=== PATIENT | male | born 1955 | race Caucasian/White ===

== ENCOUNTER 2017-03-17 20:40 | Emergency (ER) | payer BC ==
[2017-03-17 21:01] VITALS: RESP 22; TEMP 96.9
[2017-03-17] MEDS ORDERED: ONDANSETRON 4 MG/2 ML VIAL ONE (21:03)
[2017-03-17] MEDS ORDERED: MORPHINE SULFATE 4 MG/1 ML IVP ONE (21:12)
[2017-03-17] MEDS ORDERED: Sodium Chloride 0.9% 1,000 ML PRIMARY IV ONE (21:12)
[2017-03-17] MEDS ORDERED: ONDANSETRON 4 MG/2 ML VIAL IVP ONE (21:12)
--- NOTE | 2017-03-17 21:16 | PDOC ---
Abdomen/Flank HPI - General Chief Complaint: Abdomen Pain Stated Complaint: LEFT LOWER ABDOMEN PAIN Date Seen by Provider: 03/17/17 Time Seen by Provider: 21:11 Source: POSITIVE: Patient, Spouse Exam Limitations: POSITIVE: No limitations Nurse's Notes Reviewed & Considered: Yes - History of Present Illness Initial Comments: This very pleasant 61-year-old male comes in complaining of severe left lower abdominal pain. Patient was in his normal state of health at approximately 7: 30 PM tonight developed excruciating left lower quadrant pain with associated nausea, diaphoresis, pain radiated towards his umbilicus. He denies any headache, no chest pain, no shortness of breath, he does have sweats, as well as left lower quadrant abdominal pain. He has recently been taken off of all of his medications which included metformin. Body Location Affected: REPORTS: Abdomen Timing: REPORTS: Abrupt Duration: 1-3 hours Severity: Severe Quality: REPORTS: Cramping, "Pain", Sharpness, Throbbing Abdominal Pain Onset Location: REPORTS: LLQ Abdominal Pain Radiation: REPORTS: Periumbilical Context: REPORTS: Rest Modifying Factors: improves with: Nothing Associated Symptoms: REPORTS: Chills, Diaphoresis, Nausea, Vomiting Similar Symptoms Previously: No Recent Care Received: REPORTS: Denies Any Prior Injuries Related to Current Complaint?: No - Patient Home Medications Home Medications: Home Medications Aspirin 81 mg PO DAILY 03/17/17 - Patient Allergies Allergies/Adverse Reactions: Allergies Allergy/AdvReac Type Severity Reaction Status Date / Time Penicillins Allergy SWELLING Verified 03/17/17 20:45 Past Medical History - heen HEENT History: Denies History Cardiovascular History: Hypertension Respiratory History: Denies History Gastrointestinal History: Denies History Genitourinary History: Denies History Endocrine History: Denies History Musculoskeletal History: Denies History Neurological History: Denies History Blood Disorders: Denies History Psychiatric History: Denies History Cancer History: Denies History In Past Year Been Physically Harmed or Verbally Threatened: No History of MDRO: No Tobacco Use: Never Smoker Alcohol Use: Occasionally Substance Use Type: None Previous Surgical History: Yes Type / Date of Surgery: leg surgery Significant Family History: No pertinent family hx ROS - Limitations ROS Limitations: No Limitations Constitution: REPORTS: Chills, Diaphoresis Cardiovascular: REPORTS: Denies Cardiac Symptoms Respiratory: REPORTS: Denies Resp Symptoms Neurological: REPORTS: Denies Neuro Symptoms Gastrointestinal: REPORTS: Abdominal Pain, Nausea, Vomitting Endocrine: REPORTS: Denies Symptoms Musculoskeletal: REPORTS: Denies MS Symptoms Genitourinary: REPORTS: Denies Symptoms Eyes: REPORTS: Denies Symptoms ENT: REPORTS: Denies Symptoms Skin: REPORTS: Denies Skin Symptoms Lympathic: REPORTS: Denies Lympathic Symptoms Immunologic: POSITIVE: Denies Symptoms Psychiatric: POSITIVE: Denies Psych Symptoms Abdominal/Flank Pain PE - General Appearance General Appearance: POSITIVE: Alert, Cooperative, No Evidence of Trauma, Severe Distress - HEENT HEENT: POSITIVE: Head Inspection Nml, Eyes Inspection Nml, Ears Inspection Nml, Nose Inspection Nml, PERRL, EOMI - Neck Neck: POSITIVE: Normal Inspection, No Apparent Injury - Respiratory Respiratory: POSITIVE: No Respiratory Distress, Breath Sounds Normal, Chest Non- Tender - Cardiovascular Cardiovascular: POSITIVE: Regular Rate and Rhythm, Heart Sounds Normal - Chest Chest: POSITIVE: Non Tender - Abdomen Abdomen: Normal Bowel Sounds: (All Quadrants), Tenderness Noted: (LLQ), Distention: (All Quadrants), Guarding: (LLQ), Rebound: (LLQ) - Back Back: POSITIVE: CVA Tenderness (L) - Skin Skin: POSITIVE: Intact, Normal For Race, No Rash, Diaphoresis (And cool to touch ) - Extremities Extremity: Non-Tender: (All Extremities), Normal ROM: (All Extremities), Normal Inspection: (All Extremities), Pelvis Stable: (All Extremities) - Neurological Neurological: POSITIVE: Affect Apporpriate, Oriented X3, Motor Normal, Sensation Normal - Psychological Psychiatric: POSITIVE: Affect Appropriate, Mood Appropriate Abdomen Progress - Results Reviewed by me Xrays/CTs/US Reviewed by me: Yes Discussed with Radiologist: Yes Lab Results Reviewed: Yes Lab Results:: Laboratory Results 03/17/17 03/17/17 03/17/17 Range/Units 20:55 21:36 21:59 WBC 9.38 (4.8-10.8) 10^3/uL RBC 5.08 (4.70-6.10) 10^6/uL Hgb 15.1 (14.0-18.0) g/dL Hct 44.6 (42.0-52.0) % MCV 87.8 (80-90) FL MCH 29.7 (27-31) PG MCHC 33.9 (33-37) g/dL RDW Std Deviation 45.1 (39-50) fL RDW Coeff of Ena 14.2 (11.5-14.5) % Plt Count 393 H (140-350) 10*3/uL MPV 8.9 (7.4-12.2) FL Immature Gran % (Auto) 0.7 (0-5) % Neut % (Auto) 48.5 L (50-80) % Lymph % (Auto) 39.7 (10-50) % [place] % (Auto) 7.8 (5-15) % Eos % (Auto) 1.9 (0-8) % Baso % (Auto) 1.4 H (0-1) % Immature Gran # (Auto) 0.07 10*3/UL Neut # (Auto) 4.55 10*3/UL Lymph # (Auto) 3.72 10*3/uL [place] # (Auto) 0.73 (0.3-0.8) 10*3/UL Eos # (Auto) 0.18 10*3/UL Baso # (Auto) 0.13 10*3/UL WBC Morphology Comment Normal morphology (NORM) Plt Morphology Comment Normal morphology (NORM) RBC Morph Comment Normal morphology (NORM) VBG pH 7.36 (7.32-7.42) VBG pCO2 40 L (45-55) mmHg VBG HCO3 22 (22-26) mmol/L VBG Base Excess -3 L (-2-2) MMOL/L Sodium 142 (135-145) meq/L Potassium 3.9 (3.8-5.2) meq/L Chloride 102 (98-112) meq/L Carbon Dioxide 26 (23-33) meq/L Anion Gap 14 (5-20) BUN 22 (7-22) mg/dL Creatinine 1.0 (0.70-1.50) mg/dL Estimated GFR > 60 (>60 ml/min/1.73m(2)) BUN/Creatinine Ratio 22.00 H (6-20) Glucose 313 H (78-110) mg/dL Mean Blood Glucose 197.716 mg/dL Hemoglobin A1c 8.52 H (4.2-6.0) % Calculated Osmolality 308.0 H (267-292) mOsm/kg Lactic Acid 1.3 (0.70-2.10) MMOL/L Calcium 9.6 (8.7-10.7) mg/dL Magnesium 2.0 (1.6-2.4) mg/dL Total Bilirubin 0.7 (0.3-1.2) mg/dL AST 20 L (21-57) IU/L ALT 41 (21-72) IU/L Alkaline Phosphatase 79 (38-126) IU/L Troponin I < 0.012 (< 0.040) ng/mL C-Reactive Protein 1.2 H (0.0-0.9) mg/dL Total Protein 7.5 (6.1-8.0) g/dL Albumin 4.4 (3.5-4.8) g/dL Globulin 3.0 (2.50-4.10) g/dL Albumin/Globulin Ratio 1.40 (1.3-2.0) mg/g Ur Collection Type Urine Color Urine Clarity (CLEAR) Urine pH (5.0-8.5) Ur Specific [place] (1.005-1.030) Urine Protein (NEG) mg/dl Urine Glucose (UA) (NEG) mg/dL Urine Ketones (NEG) Urine Occult Blood (NEG) Urine Nitrate (NEG) Urine Bilirubin (NEG) Urine Urobilinogen (0.2) EU/dL Ur Leukocyte Esterase (NEG) Urine RBC (NONE) /hpf Urine WBC (NONE) Ur Squamous Epith Cells (NONE) Ur Renal Epithelial Cell (NONE) Urine Crystals Urine Bacteria (NONE) Urine Casts (NONE) Urine Mucus (NONE) Urine Trichomonas (NONE) Urine Yeast (NONE) Ur Culture Indicated? 03/17/17 Range/Units 22:37 WBC (4.8-10.8) 10^3/uL RBC (4.70-6.10) 10^6/uL Hgb (14.0-18.0) g/dL Hct (42.0-52.0) % MCV (80-90) FL MCH (27-31) PG MCHC (33-37) g/dL RDW Std Deviation (39-50) fL RDW Coeff of Ena (11.5-14.5) % Plt Count (140-350) 10*3/uL MPV (7.4-12.2) FL Immature Gran % (Auto) (0-5) % Neut % (Auto) (50-80) % Lymph % (Auto) (10-50) % [place] % (Auto) (5-15) % Eos % (Auto) (0-8) % Baso % (Auto) (0-1) % Immature Gran # (Auto) 10*3/UL Neut # (Auto) 10*3/UL Lymph # (Auto) 10*3/uL [place] # (Auto) (0.3-0.8) 10*3/UL Eos # (Auto) 10*3/UL Baso # (Auto) 10*3/UL WBC Morphology Comment (NORM) Plt Morphology Comment (NORM) RBC Morph Comment (NORM) VBG pH (7.32-7.42) VBG pCO2 (45-55) mmHg VBG HCO3 (22-26) mmol/L VBG Base Excess (-2-2) MMOL/L Sodium (135-145) meq/L Potassium (3.8-5.2) meq/L Chloride (98-112) meq/L Carbon Dioxide (23-33) meq/L Anion Gap (5-20) BUN (7-22) mg/dL Creatinine (0.70-1.50) mg/dL Estimated GFR (>60 ml/min/1.73m(2)) BUN/Creatinine Ratio (6-20) Glucose (78-110) mg/dL Mean Blood Glucose mg/dL Hemoglobin A1c (4.2-6.0) % Calculated Osmolality (267-292) mOsm/kg Lactic Acid (0.70-2.10) MMOL/L Calcium (8.7-10.7) mg/dL Magnesium (1.6-2.4) mg/dL Total Bilirubin (0.3-1.2) mg/dL AST (21-57) IU/L ALT (21-72) IU/L Alkaline Phosphatase (38-126) IU/L Troponin I (< 0.040) ng/mL C-Reactive Protein (0.0-0.9) mg/dL Total Protein (6.1-8.0) g/dL Albumin (3.5-4.8) g/dL Globulin (2.50-4.10) g/dL Albumin/Globulin Ratio (1.3-2.0) mg/g Ur Collection Type Clean catch urine Urine Color Yellow Urine Clarity Slightly cloudy (CLEAR) Urine pH 6.0 (5.0-8.5) Ur Specific [place] 1.015 (1.005-1.030) Urine Protein 30 (NEG) mg/dl Urine Glucose (UA) 250 (NEG) mg/dL Urine Ketones 15 (NEG) Urine Occult Blood Large H (NEG) Urine Nitrate Negative (NEG) Urine Bilirubin Negative (NEG) Urine Urobilinogen 1.0 (0.2) EU/dL Ur Leukocyte Esterase Negative (NEG) Urine RBC >100 (NONE) /hpf Urine WBC 0-1 (NONE) Ur Squamous Epith Cells None (NONE) Ur Renal Epithelial Cell None (NONE) Urine Crystals None Urine Bacteria Few (NONE) Urine Casts None (NONE) Urine Mucus None (NONE) Urine Trichomonas None (NONE) Urine Yeast None (NONE) Ur Culture Indicated? Culture not set EKG Interpretation:: POSITIVE: Normal Sinus Rhythm - Patient's Progress Pain Medication Addressed: POSITIVE: Yes Re-examine Time: 23:17 Status: POSITIVE: Improved MDM / ED Course: The patient was evaluated, an IV started, blood drawn and sent to the lab for studies urinalysis obtained, radiographic studies obtained. Patient received IV morphine, normal saline, and Zofran. Subsequent medications included Toradol and Flomax. Findings: CT scan shows 7 mm stone in the distal left ureter with mild hydronephrosis and hydroureter present. Urinalysis shows blood present. CBC shows normal white count. EKG was obtained interpreted by me showing normal sinus rhythm. Troponin is negative. Magnesium is normal. Lactic acid is normal. Hemoglobin A1c is greater than 8. Assessment: Renal calculi with mild hydronephrosis and hydroureter. Plan: Discharge home, [place] for pain, Flomax, follow-up with primary care, strain urine to capture stone when it passes, increase hydration. Return to the emergency room if there is fevers, increased pain, or other concerns. - Consult Counseled: POSITIVE: Patient, Family, RE: Lab Results, RE: Radiology Results, RE : DX, RE: Need for F/U - CP/AMI Quality Measure Initiative: CP/AMI: POSITIVE: EKG Patient Care Time - Estimated PCT Patient Care Time (In Minutes): 30 Vital Signs - Recent Vital Signs Vital Signs: Vital Signs (Last 8 hours) Temp Pulse Resp BP Pulse Ox 03/17/17 20:40 96.9 F 80 22 188/113 97 - VS Reviewed Vital Signs Reviewed: Yes Discharge Clinical Impression: Nephrolithiasis Discharge Disposition: Discharged to Home Condition: Stable Patient Instructions Given at Discharge: Kidney Stones (ED)
--- NOTE | 2017-03-17 21:16 | EKG ---
[address] [address] Measurements Intervals [place] Rate: 86 P: 51 NC: 198 QRS: 25 QRSD: 102 T: 52 QT: 375 QTc: 418 Interpretive Statements SINUS RHYTHM INTERPRETATION BASED ON A DEFAULT AGE OF 40 YEARS No previous ECG available for comparison Electronically Signed On 03-18-17 08:08:38 MDT by Evin Davey MD [email or web address]
[2017-03-17 21:20] LABS: BASOPHILS # (AUTO) 0.13 10*3/UL; BASOPHILS % (AUTO) 1.4 % (0-1); EOSINOPHILS # (AUTO) 0.18 10*3/UL; EOSINOPHILS % (AUTO) 1.9 % (0-8); HEMATOCRIT 44.6 % (42.0-52.0); HEMOGLOBIN 15.1 g/dL (14.0-18.0); LYMPHOCYTES # (AUTO) 3.72 10*3/uL; MEAN CORPUSCULAR HEMOGLOBIN 29.7 PG (27-31); MEAN CORPUSCULAR HGB CONC 33.9 g/dL (33-37); MEAN CORPUSCULAR VOLUME 87.8 FL (80-90); MEAN PLATELET VOLUME 8.9 FL (7.4-12.2); MONOCYTES # (AUTO) 0.73 10*3/UL (0.3-0.8); MONOCYTES % (AUTO) 7.8 % (5-15); NEUTROPHILS # (AUTO) 4.55 10*3/UL; NEUTROPHILS % (AUTO) 48.5 % (50-80); PLATELET MORPHOLOGY COMMENT NORMAL MORPHOLOGY (NORM); RBC MORPHOLOGY COMMENT NORMAL MORPHOLOGY (NORM); RED BLOOD COUNT 5.08 10^6/uL (4.70-6.10); WBC MORPHOLOGY COMMENT NORMAL MORPHOLOGY (NORM)
[2017-03-17 21:29] LABS: BLOOD UREA NITROGEN 22 mg/dL (7-22); C-REACTIVE PROTEIN 1.2 mg/dL (0.0-0.9); CALCIUM 9.6 mg/dL (8.7-10.7); EST GLOMERULAR FILTRATION > 60 (>60 ml/min/1.73m(2)); HEMOGLOBIN A1C 8.52 % (4.2-6.0); SERUM ALBUMIN 4.4 g/dL (3.5-4.8)
[2017-03-17 21:50] LABS: VENOUS PH 7.36 (7.32-7.42)
[2017-03-17 22:42] LABS: BILIRUBIN,URINE NEGATIVE (NEG); COLOR,URINE YELLOW; GLUCOSE, URINE (UA) 250 mg/dL (NEG); NITRATE,URINE NEGATIVE (NEG); OCCULT BLOOD,URINE LARGE (NEG); PROTEIN,URINE 30 mg/dl (NEG)
[2017-03-17 22:46] LABS: BACTERIA,URINE FEW; CLARITY,URINE SLIGHTLY CLOUDY (CLEAR); RBC,URINE >100 /hpf; URINE SAMPLE TYPE CLEAN CATCH URINE; WBC,URINE 0-1
--- NOTE | 2017-03-17 23:00 | DI ---
HISTORY: Left lower quadrant pain. TECHNIQUE: Contiguous transaxial computed tomographic images were obtained of the abdomen and pelvis per routine protocol with IV contrast. Coronal and sagittal reformat images were performed. COMPARISON: None. FINDINGS: LUNG BASES: Clear INFERIOR MEDIASTINUM: There is calcified coronary disease. LIVER: Normal in size and attenuation with no focal abnormalities. GALLBLADDER AND BILE DUCTS: Gallbladder is normal in appearance with no gallbladder wall thickening or pericholecystic fluid. No biliary dilatation. SPLEEN: Normal in size and attenuation with no focal abnormalities. PANCREAS: Normal in size and attenuation with no focal abnormalities. ADRENALS: Normal in size and attenuation with no focal abnormalities. : There is a 7 mm stone within the distal left ureter with mild hydronephrosis and edema of the lef t kidney and proximal left ureter. There is scar within the right kidney. GI: No evidence of bowel obstruction or focal inflammation. No focal bowel wall thickening. Normal appendix in the right lower quadrant. PELVIS: Within normal limits with no mass identified. VESSELS: Aorta is normal in size with no evidence of aneurysm or rupture. BONES: No acute bony abnormality. No suspicious osteolytic or osteoblastic lesion. Moderate degener ative changes are seen within the spine. SOFT TISSUES: Unremarkable. IMPRESSION: 1. There is a 7 mm stone within the distal left ureter with mild hydronephrosis and edema of the lef t kidney and proximal left ureter.
[2017-03-17] MEDS ORDERED: TAMSULOSIN 0.4 MG CAPSULE PO ONE (23:09)
[2017-03-17] MEDS ORDERED: KETOROLAC 15 MG/1 ML VIAL IVP ONE (23:17)
[2017-03-17] MEDS ORDERED: HYDROcodone-APAP 5 MG -325 MG TABLET PO ONE (23:28)
== END 2017-03-17 23:37 | disposition home or self-care (01) ==
LOC: ER 20:40
DX: N13.2 Hydronephrosis with renal and ureteral calculous obstruction (principal); R11.2 Nausea with vomiting, unspecified; R10.32 Left lower quadrant pain
CPT/HCPCS: 36415; 74177; 80053; 81001; 81003; 82803; 83036; 83605; 83735; 84484; 85025; 86140; 93005; 93010; 96361; 96374; 96375; 99283; J1885; J2270; J2405; J7030